=== PATIENT | male | born 1935 | race Caucasian/White ===

== ENCOUNTER 2017-09-09 08:49 | Day surgery (SDC) | payer MEDICARE, BC ==
[~2017-09-09] VITALS: Ht 177.8 cm; Wt 89.4 kg
[~2017-09-09 08:49] MED LIST: ASPIR 8181 MG PO; CALCIUM 600 +1 EAC5 PO; CENTRUM SILVER1 EAC3 PO; CIPRO500 MG PO; FISH OIL 1,2001 EAC4 PO; FLAGYL500 MG PO; FLOMAX0.4 MG PO; LEVOTHYROXINE50 MCG PO; LORAZEPAM0.5 MG PO; LORTAB 7.5-3251 EACH PO; LOVASTATIN; NORCO 5-325 TA1 EACH PO; THYROID; TRAZODONE HCL50 MG PO; ULTRAM50 MG PO; VITAMIN C1000 M1 PO; VITAMIN K100 MCG PO
[2017-09-09] MEDS ORDERED: PERCOCET 7.5-31 EACH PO (10:27)
--- NOTE | 2017-09-09 12:24 | NUR ---
09/09/17 1224 Holly Sheth 1217 PATIENT ARRIVES TO PACU AWAKE AND TALKING WITH STAFF. FOLLOWS COMMANDS, REPOSITIONS SELF. ROLLS ONTO BACK FOR COMFORT. DENIES PAIN OR NAUSEA. RESP EVEN AND UNLABORED, NC AT [address] BOONE AT BEDSIDE TO SPEAK WITH PATIENT. PATIENT AWAKE TALKING TO DR BOONE, THEN BACK TO SLEEP.
--- NOTE | 2017-09-09 14:09 | OR ---
[facility] [address] [place], [place] [address] Signed DATE OF OPERATION: 09/09/2017 SURGEON: Tonio Boone MD PREOPERATIVE DIAGNOSIS: Colon screening. POSTOPERATIVE DIAGNOSES: 1. Sigmoid diverticulosis. 2. Internal hemorrhoids. 3. Small polyp at 60 cm (excised). PROCEDURE: Total colonoscopy to cecum with cold morcellation, excision of polyp x1. ANESTHESIA: Intravenous sedation fentanyl 150 mcg, Versed 6 mg. INDICATION: This 82-year-old white man is a patient Dr. Caio Mayfield. He is physiologically much younger than his stated age. He underwent colonoscopy by me in 2005, which was normal. He was recommended by his service promoter salesperson Dr. Roque Salazar and subsequently Dr. Mayfield, who has assumed his care for consideration of colonoscopy again. The patient has a very vigorous lifestyle including long-distance bicycle riding and so forth. He is admitted at this time to undergo colonoscopy. He understands the risks of bleeding, infection, and perforation. Notably, he received clindamycin prophylactic antibiotic on the basis of joint replacement therapy in the past. FINDINGS: The prep was excellent. Complete colonoscopy was undertaken to the cecum. There was a good prep. There was a small polyp at 60 cm, essentially the splenic flexure, which was excised. A hemoclip was applied for mucosal approximation also. Diverticula are noted in the sigmoid and left colon as well. The remaining colon was normal except for internal hemorrhoids. DESCRIPTION OF PROCEDURE: The patient was brought to the endoscopy suite and placed in lateral decubitus position, given intravenous sedation to the point of slurred speech and nystagmus. Digital rectal examination was normal. Electronically Signed By: TONIO BOONE MD 09/09/17 1409 PATIENT NAME: HERRERA SNACHES OPERATIVE REPORT DATE OF : 35 REPORT #: [id number] PHYSICIAN: TONIO BOONE MD PCP: CAIO MAYFIELD DO REPORT IS CONFIDENTIAL AND NOT TO BE RELEASED WITHOUT AUTHORIZATION [facility] [address] [place], [place] [address] Signed An Olympus video colonoscope was passed in the rectum and manipulated throughout the colon ultimately intubating the right colon. With various manipulations, the cecum could be visualized. It could not be fully intubated, however. On that basis, the mucosa was grasped and elevated, allowing for visualization behind the ileocecal valve. The cecum appeared completely normal on that basis. The scope was then withdrawn and examination throughout showed no sign of abnormality until about 60 cm from the anal verge in the region of the splenic flexure where the small sessile polyp was noted. This was excised with cold morcellation technique. As there was relatively biopsy despite the superficial biopsy approach, the mucosa was reapproximated with a hemoclip. The scope was further withdrawn and diverticula were once again noted in the sigmoid and left colon. Retroflexed view of the rectum showed some internal hemorrhoids. The patient was taken to the recovery room at the conclusion of procedure, having suffered no complications. CONCLUDING DIAGNOSES: 1. Diverticulosis sigmoid and left colon. 2. Internal hemorrhoids. 3. Small polyp of splenic flexure. PLAN: Recommend high-fiber diet at this point. Repeat colonoscopy might be considered at 5 years if the patient physiologically appropriate for it at the advanced age of 87 years. MD EMIGDIO Chapman/MODL /[id number] cc: Caio Mayfield DO Copies: CAIO MAYFIELD DO ~ Electronically Signed By: TONIO BOONE MD 09/09/17 1409 PATIENT NAME: HERRERA SANCHES OPERATIVE REPORT DATE OF : 35 REPORT #: [id number] PHYSICIAN: TONIO BOONE MD PCP: CAIO MAYFIELD DO REPORT IS CONFIDENTIAL AND NOT TO BE RELEASED WITHOUT AUTHORIZATION
== END 2017-09-09 13:00 | disposition home or self-care (01) ==
LOC: DS 08:49 → OPS 08:49
PROVIDERS: Surgery
PROC: 0DBL8ZZ Excision of Transverse Colon, Via Natural or Artificial Opening Endoscopic (ICD-10-PCS; principal; 2017-09-09 10:00)
DX: Z12.11 Encounter for screening for malignant neoplasm of colon (principal); D12.3 Benign neoplasm of transverse colon; K64.8 Other hemorrhoids; K57.30 Diverticulosis of large intestine without perforation or abscess without bleeding; Z88.0 Allergy status to penicillin; Z88.8 Allergy status to other drugs, medicaments and biological substances; Z90.89 Acquired absence of other organs; Z98.890 Other specified postprocedural states; Z90.49 Acquired absence of other specified parts of digestive tract; Z86.010 Personal history of colon polyps; Z87.440 Personal history of urinary (tract) infections; Z96.649 Presence of unspecified artificial hip joint
CPT/HCPCS: 88305; 99153; G0500; J2250; J3010; J7120

== ENCOUNTER 2022-06-07 15:29 | Emergency (ER) | payer OTHER, MEDICARE ==
[~2022-06-07] VITALS: Ht 177.8 cm; Wt 82.5 kg
[~2022-06-07 15:29] MED LIST changes: +PERCOCET 7.5-31 EACH PO
[2022-06-07] MEDS ORDERED: LOSARTAN POTASS50 MG PO (15:51)
== END 2022-06-07 19:16 | disposition home or self-care (01) ==
LOC: ED 15:29
PROC: 0HQ0XZZ Repair Scalp Skin, External Approach (ICD-10-PCS; principal; 2022-06-07)
DX: S01.02XA Laceration with foreign body of scalp, initial encounter (principal); E03.9 Hypothyroidism, unspecified; G47.00 Insomnia, unspecified; N40.0 Benign prostatic hyperplasia without lower urinary tract symptoms; E78.5 Hyperlipidemia, unspecified; Z87.442 Personal history of urinary calculi; Z88.0 Allergy status to penicillin; Z88.8 Allergy status to other drugs, medicaments and biological substances; Z79.899 Other long term (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 therapy; W01.0XXA Fall on same level from slipping, tripping and stumbling without subsequent striking against object, initial encounter
CPT/HCPCS: 12032; 70450; 72125; 99283-25

== ENCOUNTER 2023-03-06 07:53 | Emergency (ER) | payer MEDICARE, OTHER ==
[~2023-03-06] VITALS: Ht 177.8 cm; Wt 87.0 kg
[~2023-03-06 07:53] MED LIST changes: +LOSARTAN POTASS50 MG PO
[2023-03-06] MEDS ORDERED: LEVOTHYROXINE112 MCG PO (08:07)
[2023-03-06 08:33] LABS: BASOPHILS 0.9 % (0-2); EOSINOPHILS 6.3 % (0-6); HEMATOCRIT 42.1 % (35.0-50.0); HEMOGLOBIN 14.8 g/dL (12.0-18.0); LYMPHOCYTES 22.6 % (24-44); MCH 33.7 (27-36); MCV 96.1 fl (81-99); MONOCYTES 9.1 % (0-12); NEUTROPHILS 61.1 % (39-80); PLATELET COUNT 160 K/uL (140-440); RBC 4.38 M/ul (4.3-5.7); RDW 14.1 (10.5-15.0)
[2023-03-06 08:44] LABS: INR 1.07 (0.80-1.30); PROTIME 13.4 Sec (11.2-14.2)
[2023-03-06 08:50] LABS: ALBUMIN 3.6 g/dL (3.4-5.0); ALBUMIN/GLOBULIN RATIO 1.24 (1.1-2.4); ANION GAP 14.5 (7-21); BILIRUBIN, TOTAL 1.2 ng/dL (0.2-1.0); BUN/CREATININE RATIO 24.76 (6.0-28.6); CREATININE, SERUM 1.05 mg/dL (0.70-1.30); POTASSIUM 4.5 mmol/L (3.5-5.1); PROTEIN, TOTAL 6.5 g/dL (6.4-8.2)
[2023-03-06 09:34] LABS: BILIRUBIN, URINE NEGATIVE (negative); BLOOD/HGB, URINE NEGATIVE (Negative); KETONE, URINE NEGATIVE (Negative); LEUK ESTERASE, URINE NEGATIVE (negative); NITRITE, URINE NEGATIVE (negative); PH, URINE 5.5 (5-7)
[2023-03-06] MEDS ORDERED: ELIQUIS5 MG PO (12:03)
[2023-03-06 12:17] VITALS: BP 158/88
--- NOTE | 2023-03-06 20:35 | EKG ---
[facility] [address] [facility] [place] [address] Signed Sinus bradycardia with AV dissociation and Junctional rhythm with sinus/atrial capture with premature supraventricular complexes and with occasional premature ventricular complexes Abnormal ECG When compared with ECG of 10-SEP-2016 11:57, Junctional rhythm has replaced Sinus rhythm Confirmed by Alex Murray MD () on 03/06/2023 8:35:43 PM Electronically Signed By: ALEX MURRAY MD 03/06/232034 PATIENT NAME: HERRERA SANCHES Electrocardiogram DATE OF : 35 PHYSICIAN: ALEX MURRAY MD REPORT #: [id number] REPORT IS CONFIDENTIAL AND NOT TO BE RELEASED WITHOUT AUTHORIZATION
== END 2023-03-06 12:17 | disposition home or self-care (01) ==
LOC: ED 07:53
PROVIDERS: Emergency Medicine
DX: I27.82 Chronic pulmonary embolism (principal); I45.89 Other specified conduction disorders; M54.6 Pain in thoracic spine; I72.3 Aneurysm of iliac artery; R79.1 Abnormal coagulation profile; E03.9 Hypothyroidism, unspecified; Z88.0 Allergy status to penicillin; Z88.8 Allergy status to other drugs, medicaments and biological substances; Z79.890 Hormone replacement therapy; Z79.899 Other long term (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 therapy
CPT/HCPCS: 36415; 71045; 71275; 74174; 80053; 81003; 83880; 84484; 85025; 85379; 85610; 93005; 93010; 99284-25

== ENCOUNTER 2023-07-25 07:31 | Day surgery (SDC) | payer MEDICARE, OTHER ==
[~2023-07-25] VITALS: Ht 177.8 cm; Wt 81.8 kg
[~2023-07-25 07:31] MED LIST changes: +CEFAZOLIN SODIUM 2 GM/20 ML SYR IV SCH; +ELIQUIS5 MG PO; +IBLOOD GLUCOSE TEST STRIP 1 EA TEST VI PRN; +LACTATED RINGER'S 1,000 ML IV SCH; +LEVOTHYROXINE112 MCG PO; +LIDOCAINE HCL 1% 5 ML SDV INJ ONE; +MIDAZOLAM HCL 5 MG/5 ML VIAL IV PRN; +fentaNYL citrate 100 MCG/2 ML VIAL IV PRN
[2023-07-25 07:50] VITALS: BP 137/96
[2023-07-25] MEDS ORDERED: MIDAZOLAM HCL 5 MG/5 ML VIAL ONE (08:26)
[2023-07-25] MEDS ORDERED: fentaNYL citrate 100 MCG/2 ML VIAL ONE (08:27)
--- NOTE | 2023-07-25 09:27 | NUR ---
07/25/23 0927 Liliana Horowitz 0907 PT ARRIVED IN PACU WIDE AWAKE WITH NO C/O'S. ABD SOFT. 0915 AT BEDSIDE. ALL QUESTIONS ANSWERED. 924 RESTING. REU.
[2023-07-25 09:49] VITALS: BP 117/83
--- NOTE | 2023-07-29 07:47 | OR ---
[facility] [address] [place], [place] [address] Signed DATE OF OPERATION: 07/25/2023 SURGEON: Tonio Boone MD PREOPERATIVE DIAGNOSES: History of tubular adenoma splenic flexure 2018 and known diverticulosis. POSTOPERATIVE DIAGNOSES: 1. Sigmoid and left-sided diverticulosis. 2. Polyps x2, rectosigmoid. 3. Internal hemorrhoids. PROCEDURE: Total colonoscopy to cecum with cold snare polypectomy x2. ANESTHESIA: Intravenous sedation; fentanyl 150 mcg and Versed 4 mg. INDICATION: This 88-year-old white man is a patient of Dr. Redding and well known to me from the past. He last underwent colonoscopy in 2018, at which time he had a tubular adenoma at the splenic flexure and numerous diverticula. Despite his advanced age, he is quite vigorous and healthy. He continues to do long distance bike riding. He is admitted at this time to undergo surveillance colonoscopy. He understands the risk of bleeding, infection, and perforation. FINDINGS: The prep was excellent. Complete colonoscopy was undertaken of the cecum without question. There are numerous diverticula of the sigmoid and left colon. Two small adenomatous polyps of the rectosigmoid were noted, both were excised with cold snare technique completely. Retroflexed view confirmed internal hemorrhoidal changes. DESCRIPTION OF PROCEDURE: The patient was brought to the endoscopy suite and placed in the lateral decubitus position, given intravenous sedation to the point of slurred speech and nystagmus. Digital rectal examination was normal. An Olympus video colonoscope was passed in the rectum and manipulated throughout the colon ultimately intubating the cecum itself. The ileocecal valve and appendiceal orifice were normal. The scope was withdrawn from that point and examination showed no Electronically Signed By: TONIO BOONE MD 07/29/23 0747 PATIENT NAME: HERRERA SANCHES OPERATIVE REPORT DATE OF : 35 REPORT #: [id number] PHYSICIAN: TONIO BOONE MD PCP: ANDI REDDING MD REPORT IS CONFIDENTIAL AND NOT TO BE RELEASED WITHOUT AUTHORIZATION [facility] [address] [facility] [place], [place] [address] Signed sign of abnormality other than numerous diverticula of the sigmoid and left colon. At the rectosigmoid, there were two small polyps, most of them adenomatous in appearance, both were excised with cold snare technique. Retroflexed view confirmed internal hemorrhoidal changes. Scope was removed and the patient was taken to the recovery room in good condition. CONCLUDING DIAGNOSES: 1. Polyps x2 rectosigmoid. 2. Diverticulosis. 3. Internal hemorrhoids. PLAN: Would recommend repeat colonoscopy in 5 years if clinically appropriate based on his advanced age at that point. MD EMIGDIO Chapman/AMISHA /[id number] cc: Andi Redding MD Copies: NADI REDDING MD ~ Electronically Signed By: TONIO BOONE MD 07/29/23 0747 PATIENT NAME: HERRERA SANCHES OPERATIVE REPORT DATE OF : 35 REPORT #: [id number] PHYSICIAN: TONIO BOONE MD PCP: ANDI REDDING MD REPORT IS CONFIDENTIAL AND NOT TO BE RELEASED WITHOUT AUTHORIZATION
== END 2023-07-25 10:05 | disposition home or self-care (01) ==
LOC: OPS 07:31 → DS 07:31 → OPS 08:15
PROVIDERS: ATTEND Surgery
PROC: 0DBN8ZZ Excision of Sigmoid Colon, Via Natural or Artificial Opening Endoscopic (ICD-10-PCS; principal; 2023-07-25 08:15)
DX: Z12.11 Encounter for screening for malignant neoplasm of colon (principal); K57.30 Diverticulosis of large intestine without perforation or abscess without bleeding; K63.5 Polyp of colon; K64.8 Other hemorrhoids; Z86.010 Personal history of colon polyps; Z96.649 Presence of unspecified artificial hip joint; I10 Essential (primary) hypertension; E03.9 Hypothyroidism, unspecified; Z88.8 Allergy status to other drugs, medicaments and biological substances
CPT/HCPCS: 88305; 99153; G0500; J0690; J2250; J3010; J7121

== ENCOUNTER 2024-02-18 06:21 | Emergency (ER) | payer MEDICARE, OTHER ==
[~2024-02-18] VITALS: Ht 177.8 cm; Wt 87.5 kg
--- OUTSIDE RECORDS SUMMARY | ~2024-02-18 | XMS | Continuity of Care Document ---
Demographics + + + | Address | [address] | | | [place] [address] | + + + | Preferred Language | Unknown | + + + | Marital Status | Unknown | + + + | Hindu Affiliation | Unknown | + + + | Race | White | + + + | Ethnic Group | Not or | + + + Author + + + | Author | [place] | + + + | Organization | [place] | + + + | Address | [address] | | | [place] [address] | + + + | Phone | | + + + Care Team Providers + + + + | Care Joint Terminal Attack Controller Name | Role | Phone | + + + + Unavailable | Unavailable | + + + + Allergies No information. Encounters No information. Functional Status No information. Immunizations No information. Medications No information. Problems + + + + | date | description | facility | + + + + | 2023-12-30 09:04:35 | Aneurysm of iliac artery | [facility] | + + + + | 2023-12-30 11:52:32 | Aneurysm of iliac artery | [facility] | + + + + Procedures No information. Results/Labs No information. Social History +--------+ + + | date | description | facility | +--------+ + + Vital Signs No information."
[~2024-02-18 06:21] MED LIST changes: -CEFAZOLIN SODIUM 2 GM/20 ML SYR IV SCH; +CLOPIDOGREL75 MG PO; +GABAPENTIN300 MG PO; -IBLOOD GLUCOSE TEST STRIP 1 EA TEST VI PRN; -LACTATED RINGER'S 1,000 ML IV SCH; -LIDOCAINE HCL 1% 5 ML SDV INJ ONE; -MIDAZOLAM HCL 5 MG/5 ML VIAL IV PRN; +TAMSULOSIN HCL0.4 MG PO; +TRAMADOL HCL50 MG PO; -fentaNYL citrate 100 MCG/2 ML VIAL IV PRN
--- OUTSIDE RECORDS SUMMARY | 2024-02-18 06:26 | XMS ---
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 Darci VISIT COUNT (12 MO.) [address] [place] [address] TOTAL 4 NOTE: Visits indicate total known visits. ED/UCC VISIT TRACKING (12 MO.) 02/18/2024 06:22 [facility] TYPE: Emergency COMPLAINT: - ABD PAIN 02/15/2024 14:53 [facility] TYPE: Emergency DIAGNOSES: - Aneurysm of iliac artery - Hypotension, unspecified - Hypotension - Lighheaded; Back Pain - Post-op Problem 01/27/2024 22:48 [facility] [place] TYPE: Emergency COMPLAINT: - SWOLLEN FEET DIAGNOSES: - Allergy status to other drugs, medicaments and biological substances - Allergy status to penicillin - Benign prostatic hyperplasia without lower urinary tract symptoms - Hormone replacement therapy - Hypothyroidism, unspecified - Other [place] [facility] (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 therapy - Other postprocedural complications and disorders of the circulatory system, not elsewhere classified - Other specified soft tissue disorders - Peripheral vascular disease, unspecified - Presence of left artificial hip joint 03/06/2023 07:54 [facility] [place] TYPE: Emergency COMPLAINT: - BACK PAIN DIAGNOSES: - Abnormal coagulation profile - Allergy status to other drugs, medicaments and biological substances - Allergy status to penicillin - Aneurysm of iliac artery - Chronic pulmonary embolism - Hormone replacement therapy - Hypothyroidism, unspecified - Other [place] [facility] (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 therapy - Other specified conduction disorders - Pain in thoracic spine INPATIENT VISIT TRACKING (12 MO.) 01/17/2024 05:50 [facility] TYPE: Internal Medicine DIAGNOSES: - Aneurysm of iliac artery - Retention of urine, unspecified [email or web address]
[2024-02-18] MEDS ORDERED: MORPHINE SULFATE 4 MG/ML VIAL IV ONE (07:00)
[2024-02-18 07:13] LABS: BASOPHILS 0.5 % (0-2); EOSINOPHILS 5.9 % (0-6); HEMATOCRIT 36.1 % (35.0-50.0); HEMOGLOBIN 12.5 g/dL (12.0-18.0); LYMPHOCYTES 10.2 % (24-44); MCH 33.3 (27-36); MCHC 34.7 g/dl (30-36); MONOCYTES 6.9 % (0-12); NEUTROPHILS 76.5 % (39-80); PLATELET COUNT 157 K/uL (140-440); RBC 3.76 M/ul (4.3-5.7); RDW 12.8 (10.5-15.0)
[2024-02-18] MEDS ORDERED: SODIUM CHLORIDE 0.9% 1,000 ML IV PRN ×2 (07:30→09:00)
[2024-02-18] MEDS ORDERED: ondansetron HCL 4 MG/2 ML VIAL IV ONE (07:30)
[2024-02-18 07:33] LABS: ALBUMIN 3.1 g/dL (3.4-5.0); ALBUMIN/GLOBULIN RATIO 1.11 (1.1-2.4); ANION GAP 14.6 (7-21); BILIRUBIN, TOTAL 1.3 ng/dL (0.2-1.0); CALCIUM 9.1 mg/dL (8.5-10.1); POTASSIUM 3.6 mmol/L (3.5-5.1); PROTEIN, TOTAL 5.9 g/dL (6.4-8.2)
[2024-02-18] MEDS ORDERED: NALOXONE HCL 2 MG/2 ML SYR NAS ONE (07:45)
[2024-02-18] MEDS ORDERED: CEFTRIAXONE/SODIUM CHLORIDE 1 GM/100 ML PIGGYBACK IV SCH (09:00)
[2024-02-18] MEDS ORDERED: LIDOCAINE 2% VISCOUS 6 ML SYR TOP ONE (09:15)
[2024-02-18 09:20] LABS: BILIRUBIN, URINE NEGATIVE (negative); BLOOD/HGB, URINE SMALL (Negative); KETONE, URINE NEGATIVE (Negative); LEUK ESTERASE, URINE NEGATIVE (negative); NITRITE, URINE NEGATIVE (negative)
[2024-02-18 09:31] LABS: EPITHELIAL CELLS, URINE 0 /lpf (0-1+)
[2024-02-18 09:32] LABS: BACTERIA, URINE RARE /hpf (negative); CASTS, URINE NONE SEEN \\lpf; COLLECTION TYPE, URINE CLEAN CATCH; CRYSTALS, URINE NONE SEEN (0-1+); RED BLOOD CELLS, URINE 21-40 /hpf (0-5); REFLEX CULTURE, URINE No (No)
[2024-02-18] MEDS ORDERED: CEFDINIR300 MG PO (09:32)
[2024-02-18] MEDS ORDERED: METRONIDAZOLE500 MG PO (09:32)
[2024-02-18 11:05] VITALS: BP 134/90
--- NOTE | 2024-02-19 09:00 | EKG ---
[facility] [address] [facility] [place] [address] Signed Sinus rhythm with 1st degree AV block with premature atrial complexes with aberrant conduction Otherwise normal ECG When compared with ECG of 06-MAR-2023 08:00, Sinus rhythm has replaced Junctional rhythm Vent. rate has increased BY 30 BPM QT has lengthened Confirmed by Micheal Vinson MD ([id number]) on 02/19/2024 9:00:36 AM Electronically Signed By: MICHEAL VINSON 02/19/24 0900 PATIENT NAME: HERRERA SANCHES Electrocardiogram DATE OF : 35 PHYSICIAN: MICHEAL VINSON REPORT #: [id number] REPORT IS CONFIDENTIAL AND NOT TO BE RELEASED WITHOUT AUTHORIZATION
--- NOTE | 2024-02-21 13:35 | EKG ---
[facility] [address] [facility] [place] [address] Signed Atrial fibrillation with slow ventricular response Nonspecific T wave abnormality Abnormal ECG When compared with ECG of 18-FEB-2024 06:52, (Unconfirmed) Atrial fibrillation has replaced Sinus rhythm Vent. rate has decreased BY 38 BPM QT has shortened Confirmed by Micheal Vinson MD ([id number]) on 02/21/2024 1:35:21 PM Electronically Signed By: MICHEAL VINSON 02/21/24 1335 PATIENT NAME: HERRERA SANCHES Electrocardiogram DATE OF : 35 PHYSICIAN: MICHEAL VINSON REPORT #: [id number] REPORT IS CONFIDENTIAL AND NOT TO BE RELEASED WITHOUT AUTHORIZATION
== END 2024-02-18 11:05 | disposition left against medical advice (07) ==
LOC: ED 06:21
PROVIDERS: Internal Medicine
DX: K57.32 Diverticulitis of large intestine without perforation or abscess without bleeding (principal); R55 Syncope and collapse; E03.9 Hypothyroidism, unspecified; Z79.890 Hormone replacement therapy; Z79.899 Other long term (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 therapy; Z88.1 Allergy status to other antibiotic agents; Z88.0 Allergy status to penicillin; Z88.5 Allergy status to narcotic agent; Z88.8 Allergy status to other drugs, medicaments and biological substances
CPT/HCPCS: 36415; 71045; 74174; 80053; 81001; 83690; 84484; 85025; 93005; 93010; 96361; 99284-25; J0696; J2270; J2310; J2405; J7030; Q9967

== ENCOUNTER 2024-06-23 21:09 | Emergency (ER) | payer MEDICARE, OTHER ==
[~2024-06-23] VITALS: Ht 177.8 cm; Wt 83.0 kg
[~2024-06-23 21:09] MED LIST changes: +CEFDINIR300 MG PO; +METRONIDAZOLE500 MG PO
[2024-06-23] MEDS ORDERED: ACETAMINOPHEN 500 MG TAB PO ONE (22:00)
[2024-06-23] MEDS ORDERED: METOPROLOL SUCC25 MG PO (22:39)
[2024-06-23 22:46] VITALS: BP 166/95
== END 2024-06-23 22:46 | disposition home or self-care (01) ==
LOC: ED 21:09
DX: S09.90XA Unspecified injury of head, initial encounter (principal); W18.39XA Other fall on same level, initial encounter; E03.9 Hypothyroidism, unspecified; E78.5 Hyperlipidemia, unspecified; Z88.1 Allergy status to other antibiotic agents; Z88.0 Allergy status to penicillin; Z88.5 Allergy status to narcotic agent; Z88.8 Allergy status to other drugs, medicaments and biological substances; Z79.899 Other long term (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 therapy; Z79.890 Hormone replacement therapy
CPT/HCPCS: 36415; 70450; 99283-25; A9270; G0480

== ENCOUNTER 2024-08-23 23:30 | Emergency (ER) | payer MEDICARE, OTHER ==
[~2024-08-23] VITALS: Ht 177.8 cm; Wt 87.0 kg
[~2024-08-23 23:30] MED LIST changes: +METOPROLOL SUCC25 MG PO
[2024-08-24] MEDS ORDERED: INDOMETHACIN75 MG PO (00:33)
[2024-08-24] MEDS ORDERED: HYDROCODONE BIT/ACETAMINOPHEN 5/325 MG 1 TAB HOME.PACK PO ONE (01:15)
[2024-08-24] MEDS ORDERED: PREDNISONE20 MG PO (01:20)
[2024-08-24] MEDS ORDERED: HYDROCODON-ACE1 EA10 PO (01:20)
[2024-08-24] MEDS ORDERED: predniSONE 20 MG TAB PO ONE (01:30)
[2024-08-24 01:41] VITALS: BP 158/101
== END 2024-08-24 01:42 | disposition home or self-care (01) ==
LOC: ED 23:30
DX: M54.42 Lumbago with sciatica, left side (principal); M54.41 Lumbago with sciatica, right side; K40.90 Unilateral inguinal hernia, without obstruction or gangrene, not specified as recurrent; M47.817 Spondylosis without myelopathy or radiculopathy, lumbosacral region; E03.9 Hypothyroidism, unspecified; Z88.1 Allergy status to other antibiotic agents; Z88.0 Allergy status to penicillin; Z88.5 Allergy status to narcotic agent; Z88.8 Allergy status to other drugs, medicaments and biological substances; Z79.890 Hormone replacement therapy
CPT/HCPCS: 99282; A9270; J7512

== ENCOUNTER 2024-11-14 16:17 | Emergency (ER) | payer MEDICARE, OTHER ==
[~2024-11-14] VITALS: Ht 177.8 cm; Wt 86.0 kg
[~2024-11-14 16:17] MED LIST changes: +HYDROCODON-ACE1 EA10 PO; +INDOMETHACIN75 MG PO; +PREDNISONE20 MG PO
[2024-11-14 18:24] LABS: BILIRUBIN, URINE NEGATIVE (negative); BLOOD/HGB, URINE NEGATIVE (Negative); KETONE, URINE NEGATIVE (Negative); LEUK ESTERASE, URINE NEGATIVE (negative); NITRITE, URINE NEGATIVE (negative); PH, URINE 5.5 (5-7)
[2024-11-14 18:30] LABS: BACTERIA, URINE NONE SEEN /hpf (negative); CASTS, URINE NONE SEEN \\lpf; CRYSTALS, URINE NONE SEEN (0-1+); EPITHELIAL CELLS, URINE NONE SEEN /lpf (0-1+); RED BLOOD CELLS, URINE 0-1 /hpf (0-5); REFLEX CULTURE, URINE No (No); WHITE BLOOD CELLS, URINE 0-1 /HPF (0-5)
[2024-11-14 18:31] LABS: COLLECTION TYPE, URINE CLEAN CATCH
[2024-11-14] MEDS ORDERED: FLOMAX0.4 MG PO (20:26)
[2024-11-14] MEDS ORDERED: TAMSULOSIN HCL 0.4 MG CAP PO ONE (20:30)
[2024-11-14 20:48] VITALS: BP 150/97
== END 2024-11-14 20:52 | disposition home or self-care (01) ==
LOC: ED 16:17
PROVIDERS: Emergency Medicine
DX: R33.9 Retention of urine, unspecified (principal); E78.5 Hyperlipidemia, unspecified; Z79.899 Other long term (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 therapy; Z96.642 Presence of left artificial hip joint; Z79.2 Long term (current) use of antibiotics; Z88.5 Allergy status to narcotic agent; Z79.890 Hormone replacement therapy
CPT/HCPCS: 51798; 81001; 99283

== ENCOUNTER 2024-12-02 05:20 | Emergency (ER) | payer MEDICARE, OTHER ==
[~2024-12-02] VITALS: Ht 177.8 cm; Wt 86.0 kg
--- OUTSIDE RECORDS SUMMARY | 2024-12-02 05:27 | XMS ---
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 Darci VISIT COUNT (12 MO.) [address] [place] [address] TOTAL 8 NOTE: Visits indicate total known visits. 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 - Other [facility] (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 therapy - Presence of left artificial hip joint - Retention of urine, unspecified 08/23/2024 23:31 [facility] [place] TYPE: Emergency COMPLAINT: - LEG PAIN DIAGNOSES: - Allergy status to narcotic agent - Allergy status to other antibiotic agents - Allergy status to other drugs, medicaments and biological substances - Allergy status to penicillin - Hormone replacement therapy - Hypothyroidism, unspecified - Low back pain, unspecified - Lumbago with sciatica, left side - Lumbago with sciatica, right side - Spondylosis without myelopathy or radiculopathy, lumbosacral region - Unilateral inguinal hernia, without obstruction or gangrene, not specified as recurrent 06/23/2024 21:09 [facility] [place] TYPE: Emergency COMPLAINT: - FALL DIAGNOSES: - Allergy status to narcotic agent - Allergy status to other antibiotic agents - Allergy status to other drugs, medicaments and biological substances - Allergy status to penicillin - Hormone replacement therapy - Hyperlipidemia, unspecified - Hypothyroidism, unspecified - Other fall on same level, initial encounter - Other [facility] (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 therapy - Unspecified injury of head, initial encounter 02/18/2024 06:22 [facility] [place] TYPE: Emergency COMPLAINT: - ABD PAIN DIAGNOSES: - Allergy status to narcotic agent - Allergy status to other antibiotic agents - Allergy status to other drugs, medicaments and biological substances - Allergy status to penicillin - Diverticulitis of large intestine without perforation or abscess without bleeding - Hormone replacement therapy - Hypothyroidism, unspecified - Left lower quadrant pain - 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 (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 therapy - Syncope and collapse 02/15/2024 14:53 [facility] TYPE: Emergency DIAGNOSES: - Aneurysm of iliac artery - Hypotension, unspecified - Hypotension - Lighheaded; Back Pain - Post-op Problem 01/27/2024 22:48 [facility] TYPE: Emergency COMPLAINT: - SWOLLEN FEET DIAGNOSES: - Allergy status to other drugs, medicaments and biological substances - Allergy status to penicillin - Benign prostatic hyperplasia without lower urinary tract symptoms - Hormone replacement therapy - Hypothyroidism, unspecified - Other [facility] (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 therapy - Other postprocedural complications and disorders of the circulatory system, not elsewhere classified - Other specified soft tissue disorders - Peripheral vascular disease, unspecified - Presence of left artificial hip joint INPATIENT VISIT TRACKING (12 MO.) 01/17/2024 05:50 [facility] TYPE: Internal Medicine DIAGNOSES: - Aneurysm of iliac artery - Retention of urine, unspecified [email or web address]
[2024-12-02] MEDS ORDERED: DOXYCYCLINE HYCLATE 100 MG HOME.PACK PO ONE (05:45)
[2024-12-02 06:00] VITALS: BP 127/47
== END 2024-12-02 06:01 | disposition home or self-care (01) ==
LOC: ED 05:20
DX: S30.91XA Unspecified superficial injury of lower back and pelvis, initial encounter (principal); L08.9 Local infection of the skin and subcutaneous tissue, unspecified; E78.5 Hyperlipidemia, unspecified; Z96.641 Presence of right artificial hip joint; Z79.2 Long term (current) use of antibiotics; Z88.5 Allergy status to narcotic agent; Z88.1 Allergy status to other antibiotic agents; X58.XXXA Exposure to other specified factors, initial encounter
CPT/HCPCS: 99282; A9270